=== PATIENT | male | born 1995 | race Caucasian/White ===

== ENCOUNTER 2020-03-14 03:43 | Emergency (ER) | payer OTHER ==
[2020-03-14] MEDS ORDERED: SODIUM CHLORIDE 0.9% 1,000 ML IV STA (03:46)
[2020-03-14 03:53] VITALS: TEMP 98.6
--- NOTE | 2020-03-14 04:08 | ED ---
Syncope HPI - General Stated Complaint: Syncope Time Seen by Provider: 03/14/20 03:45 Source: patient, EMS Mode of arrival: EMS Limitations: no limitations - History of Present Illness Initial Comments: This patient is a 24-year-old man brought by an [facility] to be evaluated for an episode of passing out. The patient states that he had been playing a game on his phone and then stood up to go and use the bathroom. The patient states that his face felt tingly and then the next thing he knew he was waking up on the ground. The patient's family had heard a loud noise and they went down to check on him and found him lying on the floor. They state that it took about 2 minutes for him to become responsive. They did not observe any tonic-clonic movements. There was no loss of continence. Patient did notice that he struck the right side of his upper lip and there was a small laceration on the mucosal aspect. (Patient states that last tetanus shot was definitely less than 10 years ago) He denies any other injury. The patient denies pain. No headache or neck pain. No chest, back, or abdominal pain. The patient states that it does not feel like the teeth underlying the laceration are sore or loose. MD Complaint: loss of consciousness, collapsed Onset/Timin -: hour(s) -: minutes(s) Witnessed: no Injuries Sustained Associated with Event: Other Current Symptoms: back to baseline Context: standing up Treatments Prior to Arrival: none - Related Data Allergies Allergy/AdvReac Type Severity Reaction Status Date / Time No Known Allergies Allergy Verified 03/14/20 03:52 Review of Systems ROS Statement: Those systems with pertinent positive or pertinent negative responses have been documented in the HPI. ROS Other: All systems not noted in ROS Statement are negative. Constitutional: Denies: fever, chills, weakness Eyes: Denies: vision change ENT: Denies: dental pain Respiratory: Denies: cough, dyspnea Cardiovascular: Reports: palpitations, syncope. Denies: chest pain, orthopnea, edema Gastrointestinal: Denies: abdominal pain, nausea, vomiting, diarrhea, constip ation, melena, hematochezia Genitourinary: Denies: dysuria Musculoskeletal: Denies: back pain Neurological: Denies: headache, weakness, numbness, paresthesias, confusion Hematological/Lymphatic: Denies: easy bleeding Past Medical History Past Medical History: Hypertension Past Surgical History: No Surgical Hx Reported Smoking Status: Current every day smoker Past Alcohol Use History: Occasional Past Drug Use History: None Reported General Exam General appearance: alert, in no apparent distress Head exam: Present: atraumatic, normocephalic Eye exam: Present: normal appearance, PERRL, EOMI. Absent: scleral icterus, conjunctival injection, nystagmus ENT exam: Present: normal oropharynx, mucous membranes moist, other (Small amount swelling to the right of the upper lip. There is an approximately 7 or 8 mm puncture wound to the mucosal aspect. Teeth underlying the laceration are normal to examination. No tenderness.) Neck exam: Present: normal inspection, full ROM. Absent: tenderness, meningismus Respiratory exam: Present: normal lung sounds bilaterally. Absent: respiratory distress, wheezes, rales, rhonchi, stridor, chest wall tenderness Cardiovascular Exam: Present: normal rhythm, tachycardia, normal heart sounds. Absent: systolic murmur, diastolic murmur, rubs, gallop GI/Abdominal exam: Present: soft. Absent: tenderness, guarding, rebound, rigid, mass, pulsatile mass Extremities exam: Present: normal inspection, normal capillary refill. Absent: tenderness, pedal edema Neurological exam: Present: alert, oriented X3, CN II-XII intact. Absent: motor sensory deficit Skin exam: Present: warm, dry, intact, normal color. Absent: rash Course Vital Signs 03/14/20 03/14/20 03/14/20 03:44 03:54 04:12 Temperature 98.6 F Pulse Rate 144 H 129 H Pulse Rate [ 142 H Feeder Operator Automatic ] Respiratory 19 18 Rate Blood Pressure 188/119 166/103 O2 Sat by Pulse 96 97 Oximetry 03/14/20 03/14/20 04:44 05:12 Temperature Pulse Rate 118 H 102 H Pulse Rate [ Feeder Operator Automatic ] Respiratory 20 18 Rate Blood Pressure 173/108 166/107 O2 Sat by Pulse 95 96 Oximetry EKG Findings - EKG Results: EKG: interpreted by SONIDO, sinus rhythm, normal axis, normal QRS, normal ST/T EKG shows: tachycardia (Rate 142 bpm) Medical Decision Making - Medical Decision Making Patient is a 24-year-old man with syncopal episode tonight. His workup does reveal elevated AST, and the patient states that he does drink alcohol, including having a few beers earlier tonight. I did discuss appropriate follow- up to have this retested and recommended reducing intake. Also counseled patient regarding the hypertension, need to have this rechecked, and need to start medication should remain at this level. - Lab Data Result diagrams: 03/14/20 03:33 03/14/20 03:33 Lab Results 03/14/20 03/14/20 03/14/20 Range/Units 03:33 03:33 03:33 WBC 9.6 (3.8-10.6) k/uL RBC 3.92 L (4.30-5.90) m/uL Hgb 15.0 (13.0-17.5) gm/dL Hct 45.0 (39.0-53.0) % MCV 114.6 H (80.0-100.0) fL MCH 38.2 H (25.0-35.0) pg MCHC 33.4 (31.0-37.0) g/dL RDW 13.9 (11.5-15.5) % Plt Count 273 (150-450) k/uL Neutrophils % 79 % Lymphocytes % 14 % Monocytes % 4 % Eosinophils % 1 % Basophils % 1 % Neutrophils # 7.6 (1.3-7.7) k/uL Lymphocytes # 1.4 (1.0-4.8) k/uL Monocytes # 0.4 (0-1.0) k/uL Eosinophils # 0.1 (0-0.7) k/uL Basophils # 0.1 (0-0.2) k/uL Manual Slide Review Performed Macrocytosis Marked A Sodium 135 L (137-145) mmol/L Potassium 3.5 (3.5-5.1) mmol/L Chloride 99 (98-107) mmol/L Carbon Dioxide 14 L (22-30) mmol/L Anion Gap 22 mmol/L BUN 4 L (9-20) mg/dL Creatinine 0.84 (0.66-1.25) mg/dL Est GFR (CKD-EPI)AfAm >90 (>60 ml/min/1.73 sqM) Est GFR (CKD-EPI)NonAf >90 (>60 ml/min/1.73 sqM) Glucose 147 H (74-99) mg/dL Calcium 9.6 (8.4-10.2) mg/dL Total Bilirubin 1.1 (0.2-1.3) mg/dL AST 454 H (17-59) U/L ALT 119 H (4-49) U/L Alkaline Phosphatase 102 (38-126) U/L Troponin I <0.012 (0.000-0.034) ng/mL Total Protein 8.2 (6.3-8.2) g/dL Albumin 5.0 (3.5-5.0) g/dL Disposition Clinical Impression: Vasovagal syncope, Transaminitis, Hypertension Disposition: HOME SELF-CARE Condition: Good Instructions (If sedation given, give patient instructions): Syncope (DC), Hypertension (ED) Additional Instructions: As we discussed follow up with the physician to have your liver enzymes rechecked. Is also necessary to have your blood pressure rechecked and to start medication if it remains elevated. Is patient prescribed a controlled substance at d/c from ED?: No Referrals: None,Stated [Primary Care Provider] - 1-2 days Janes De La Cruz MD [REFERRING] - 1-2 days
--- NOTE | 2020-03-14 04:13 | XR ---
EXAMINATION TYPE: XR chest 2V DATE OF EXAM: 03/14/2020 COMPARISON: NONE HISTORY: Syncope TECHNIQUE: FINDINGS: Heart and mediastinum are normal. Lungs are clear. Diaphragm is normal. There are chest odalis ds. Bony thorax appears normal. IMPRESSION: Normal chest.
[2020-03-14 04:39] LABS: ALT 119 U/L (4-49); AST 454 U/L (17-59); African American GFR (CKD) >90 (>60 ml/min/1.73 sqM); Alkaline Phosphatase 102 U/L (38-126); Anion Gap 22 mmol/L; Blood Urea Nitrogen 4 mg/dL (9-20); Calcium 9.6 mg/dL (8.4-10.2); Carbon Dioxide 14 mmol/L (22-30); Chloride 99 mmol/L (98-107); Glucose 147 mg/dL (74-99); Non-African American GFR(CKD) >90 (>60 ml/min/1.73 sqM); Potassium 3.5 mmol/L (3.5-5.1); Sodium 135 mmol/L (137-145); Total Bilirubin 1.1 mg/dL (0.2-1.3); Total Protein 8.2 g/dL (6.3-8.2)
[2020-03-14 04:43] LABS: Basophils # (A) 0.1 k/uL (0-0.2); Basophils % (A) 1 %; Eosinophils # (A) 0.1 k/uL (0-0.7); Eosinophils % (A) 1 %; Lymphocytes # (A) 1.4 k/uL (1.0-4.8); Lymphocytes % (A) 14 %; MCH 38.2 pg (25.0-35.0); MCHC 33.4 g/dL (31.0-37.0); MCV 114.6 fL (80.0-100.0); Macrocytosis Marked; Mean Platelet Volume 7.6; Monocytes # (A) 0.4 k/uL (0-1.0); Monocytes % (A) 4 %; Neutrophils # (A) 7.6 k/uL (1.3-7.7); Neutrophils % (A) 79 %; Platelet Count 273 k/uL (150-450); RBC 3.92 m/uL (4.30-5.90); RDW 13.9 % (11.5-15.5); WBC 9.6 k/uL (3.8-10.6)
[2020-03-14 05:13] VITALS: RESP 18
[2020-03-14 05:56] VITALS: BP 169/100; PULSE 87
== END 2020-03-14 06:05 | disposition home or self-care (01) ==
LOC: EC 03:43
DX: R55 Syncope and collapse (principal); I10 Essential (primary) hypertension; R74.0 Nonspecific elevation of levels of transaminase and lactic acid dehydrogenase [LDH]; F17.200 Nicotine dependence, unspecified, uncomplicated
CPT/HCPCS: 36415; 71046; 80053; 84484; 85025; 93005; 96360; 96361; 99285